=== PATIENT | female | born 1950 | race Caucasian/White ===

== ENCOUNTER 2018-02-04 07:04 | Day surgery (SDC) | payer MEDICARE, OTHER, SELFPAY ==
[2018-02-04 08:20] VITALS: BP 125/75; PULSE 61; RESP 16; TEMP 36.4; O2SAT 99; BMI 28.3
--- NOTE | 2018-02-04 08:38 | PM.PREOP ---
Pre-operative Note Interval Note Pre-op Check: Yes History & Physical Reviewed by Physician, Yes Exam Performed and Yes History & Physical exam performed today by Physician Changes: No
[2018-02-04] MEDS: PROPARACAINE 0.5% OPHTH SOL 2 DROPS EYE-OP (08:39)
[2018-02-04] MEDS: CATARACT EYE COMPOUND (10 DROPS/SYRINGE) 3 DROPS EYE-OP (08:43)
--- NOTE | 2018-02-04 09:22 | SUR.OPER ---
Supine on eye stretcher, head on extension cradle secured with tape. Arms tucked at sides with blanket. Pillow under knees.
[2018-02-04] MEDS: CHONDROIDTIN/SOD HYALURONATE 1.05 ML SYRINGE INTRAOCULA (09:26)
[2018-02-04] MEDS: LIDOCAINE JELLY 2% 5 ML 1 APPLIC TOP (09:27)
[2018-02-04] MEDS: MOXIFLOXACIN OPHTH DROPS 3 ML BOTTLE 2 DROPS INJ (09:27)
[2018-02-04] MEDS: PHENYLEPHRINE/LIDOCAINE 3ML VIAL (OR) EYE-OP (09:28)
[2018-02-04] MEDS: BALANCED SALT IRRIG SOLN NO.2 500 ML, EPINEPHrine 1 MG IRR (09:28)
[2018-02-04] MEDS: TETRACAINE 0.5% OPHTH DROPS 15 ML 2 DROPS EYE-RIGHT (09:31)
[2018-02-04 10:00] VITALS: BP 114/65; PULSE 62; RESP 16; TEMP 36.1; O2SAT 94
--- NOTE | 2018-02-04 14:12 | PM.OP.1 ---
Operative Date/Time/Diagnoses Pre-op diagnosis: Cataract right eye Post-op diagnosis: same Procedure & Clinicians Procedure: Cataract left eye Same procedure as scheduled: Yes Indications: Decreased vision Surgeon: Alex Green Anesthesia Type: MAC +/- and Sedation
--- NOTE | 2018-02-04 20:38 | PM.OP.1 ---
Procedure & Clinicians Procedure: Cataract extraction with intraocular lens implant, right eye Same procedure as scheduled: Yes Indications: Blurry vision Surgeon: Alex Green Anesthesia Type: MAC +/- Operative Notes Procedure in detail: The patient was brought to the operating suite. Tetracaine drops were placed in the right eye. The patient was prepped and draped in the typical sterile manner. A lid speculum was placed in the eye. Lidocaine jelly was placed on the eye. A paracentesis port was created with a side-port blade. 0.1 mL of 1% preservative free lidocaine was injected into the anterior chamber. Viscoelastic was injected into the anterior chamber. A 2.6mm keratome was used to create an clear corneal temporal incision. Cystotome and Utrata forceps were used to create a continuous curvilinear capsulorrhexis. Balanced salt solution was used to hydro dissect the nucleus. Phacoemulsification was used to remove the lens. The capsular bag was inflated with viscoelastic. A Lainez ZCBOO 25.5D lens was inserted. The viscoelastic was removed and the wound hydrated. The wound was found to be leak free and the eye was assessed to be at normal physiologic pressure. 0.1mL Vigamox was injected into the anterior chamber. The lid speculum was removed and the patient left the operating room in excellent condition. Condition: stable Disposition: same day surgery
== END 2018-02-04 10:13 | disposition home or self-care (01) ==
PROVIDERS: PCP Internal Medicine; Visit Provider Ophthalmology
DX: H25.11 Age-related nuclear cataract, right eye (principal); I51.9 Heart disease, unspecified; I10 Essential (primary) hypertension
CPT/HCPCS: J0171; J2250; J3010

== ENCOUNTER 2018-02-17 09:52 | Day surgery (SDC) | payer MEDICARE, OTHER, SELFPAY ==
[2018-02-17 10:42] VITALS: BP 133/71; PULSE 61; RESP 20; TEMP 36.3; O2SAT 99; BMI 28.3
[2018-02-17] MEDS: PROPARACAINE 0.5% OPHTH SOL 2 DROPS EYE-OP (10:58)
[2018-02-17] MEDS: CATARACT EYE COMPOUND (10 DROPS/SYRINGE) 3 DROPS EYE-OP (11:03)
--- NOTE | 2018-02-17 11:05 | SUR.PREOP ---
Dr Green called, verified phenylephrine, cyclopentolate, and Tropicamide and Proparacaine acceptable to give patient.
--- NOTE | 2018-02-17 11:19 | PM.PREOP ---
Pre-operative Note Interval Note Pre-op Check: Yes History & Physical Reviewed by Physician Changes: No
--- NOTE | 2018-02-17 11:58 | SUR.OPER ---
Supine on eye stretcher, head on extension cradle secured with tape. Arms tucked at sides with blanket. Pillow under knees.
[2018-02-17] MEDS: CHONDROIDTIN/SOD HYALURONATE 1.05 ML SYRINGE INTRAOCULA (12:04)
[2018-02-17] MEDS: LIDOCAINE JELLY 2% 5 ML 1 APPLIC TOP (12:05)
[2018-02-17] MEDS: BALANCED SALT IRRIG SOLN NO.2 500 ML, EPINEPHrine 1 MG IRR (12:05)
[2018-02-17] MEDS: MOXIFLOXACIN OPHTH DROPS 3 ML BOTTLE 2 DROPS INJ (12:05)
[2018-02-17] MEDS: LIDOCAINE 1% 10 ML INJ INJ (12:07)
[2018-02-17 12:40] VITALS: BP 94/62; PULSE 66; RESP 20; TEMP 36.4; O2SAT 95
[2018-02-17 12:54] VITALS: BP 102/70; PULSE 65; RESP 14; O2SAT 96
--- NOTE | 2018-02-17 13:44 | PM.OP.1 ---
Operative Date/Time/Diagnoses Date of procedure: 02/17/18 Time of procedure: 13:44 Pre-op diagnosis: cataract Post-op diagnosis: same
--- NOTE | 2018-02-17 13:45 | PM.OP.1 ---
Procedure & Clinicians Procedure: cataract extraction with intraocular lens implant, left eye Same procedure as scheduled: Yes Surgeon: Alex Green Operative Notes Procedure in detail: The patient was brought back into the operating room. Timeout was performed identifying the correct patient, procedure and site. The patient was prepped and draped in the typical sterile fashion. A paracentesis wound was made in the left eye. 1% preservative free lidocaine was injected into the anterior chamber, then viscoelastic was injected into the anterior chamber. The main wound was created with a 2.6 mm Keratome. A curvilinear capsulorhexis was created with a cystotome and utrata forceps. Hydrodissection was performed with balanced salt solution and a straight cannula. The lens was removed with phacoemulsification and the bag was polished. The bag was filled with viscoelastic and a ZCBOO 23.5D lens was inserted into the bag. Viscoelasitc was removed, the wound was hydrated and found to be water tight. The eye was at physiologic pressure. The patient left the operating room in excellent condition. Complications: none Condition: stable Disposition: same day surgery
== END 2018-02-17 12:47 | disposition home or self-care (01) ==
PROVIDERS: Family Provider Internal Medicine; PCP Internal Medicine; Visit Provider Ophthalmology
DX: H25.12 Age-related nuclear cataract, left eye (principal); I10 Essential (primary) hypertension; I51.9 Heart disease, unspecified
CPT/HCPCS: J0171; J2250; J3010

== ENCOUNTER → 2018-08-20 11:00 | Outpatient (CLI) | payer MEDICARE, OTHER, SELFPAY ==
--- NOTE | 2018-08-20 11:04 | DI.RAD.S_ITS ---
PROCEDURE: XR LUMBAR SPINE MIN 4V INDICATIONS: Lumbosacral spondylosis TECHNIQUE: 5 views of the lumbar spine were acquired. COMPARISON: [facility], , SPINE LUMB 2 OR 3VW, 04/10/2012, 11:40. FINDINGS: Bones: 6 nonrib-bearing vertebrae are present. Vertebral bodies are labeled one through 6, in keeping with prior nomenclature. There is minimal retrolisthesis of L1 on L2, L2 on L3, L3 on L4, L4 and L5. Severe disc space narrowing is present L5-L6 and L6 S1. Severe foraminal narrowing is present at L5-L6, moderate to severe L5-S1. No vertebral body compression fractures. No suspicious bony lesions. Soft tissues: Overlying bowel gas pattern is normal. No suspicious soft tissue calcifications. Oblique images: No pars defects. IMPRESSION: Multilevel disc and foraminal narrowing most significant at L5-L6 and L6-S1. Dictated by: Kalpana Kendrick M.D. on 08/20/2018 at 14:56 Approved by: Kalpana Kendrick M.D. on 08/20/2018 at 15:00
--- NOTE | 2018-08-20 11:04 | DI.RAD.S_ITS ---
PROCEDURE: XR FOOT RT MIN 3V INDICATIONS: Bilateral foot pain and sensory peripheral neuropathy TECHNIQUE: 3 views of the foot were acquired. COMPARISON: None. FINDINGS: Bones: No fractures or dislocations. No suspicious bony lesions. No significant arthritic change. Soft tissues: No tibiotalar joint effusion. Achilles tendon appears normal. IMPRESSION: Negative right ankle. Dictated by: Reginaldo Michel M.D. on 08/20/2018 at 13:05 Approved by: Reginaldo Michel M.D. on 08/20/2018 at 13:05
--- NOTE | 2018-08-20 11:04 | DI.RAD.S_ITS ---
PROCEDURE: XR FOOT LT MIN 3V INDICATIONS: Bilateral foot pain and sensory peripheral neuropathy TECHNIQUE: 3 views of the foot were acquired. COMPARISON: None. FINDINGS: Bones: No fractures or dislocations. No suspicious bony lesions. No significant arthritic change. Soft tissues: No tibiotalar joint effusion. Achilles tendon appears normal. IMPRESSION: Unremarkable left foot. Dictated by: Reginaldo Michel M.D. on 08/20/2018 at 13:03 Approved by: Reginaldo Michel M.D. on 08/20/2018 at 13:05
== END ==
PROVIDERS: Family Provider Internal Medicine; PCP Internal Medicine; Visit Provider Physical Medicine & Rehabilitation
DX: M79.671 Pain in right foot (principal); M79.672 Pain in left foot; M47.27 Other spondylosis with radiculopathy, lumbosacral region; M48.061 Spinal stenosis, lumbar region without neurogenic claudication; M48.07 Spinal stenosis, lumbosacral region; G60.8 Other hereditary and idiopathic neuropathies
CPT/HCPCS: 72110; 73630

== ENCOUNTER → 2018-11-09 07:47 | Outpatient (CLI) | payer MEDICARE, OTHER, SELFPAY ==
--- NOTE | 2018-11-09 | DI.US.S_ITS ---
PROCEDURE: US ARTERIAL DUPLEX LE BI INDICATIONS: LOW BACK PAIN PVD of TECHNIQUE: Color and pulse Doppler interrogation was performed of both lower extremity arterial systems, with image documentation. COMPARISON: [facility], , ARTERIAL LOW.EXTREM.BILATERAL, 04/26/2016, 11:08. FINDINGS: Right lower extremity: Common femoral artery: 127 cm/sec, with triphasic flow. Deep femoral artery: 78 cm/sec, with triphasic flow. Proximal superficial femoral artery: 86 cm/sec, with biphasic flow. Mid superficial femoral artery: 79 cm/sec, with biphasic flow. Distal superficial femoral artery: 56 cm/sec, with biphasic flow. Popliteal artery: 48 cm/sec, with biphasic flow. Posterior tibial artery: 60 cm/sec, with biphasic flow. Anterior tibial artery/dorsalis pedis: 58/51 cm/sec, with biphasic flow. French-scale imaging description: No significant stenotic disease. Left lower extremity: Common femoral artery: 141 cm/sec, with triphasic flow. Deep femoral artery: 74 cm/sec, with biphasic flow. Proximal superficial femoral artery: 113 cm/sec, with triphasic flow. Mid superficial femoral artery: 77 cm/sec, with biphasic flow. Distal superficial femoral artery: 76 cm/sec, with biphasic flow. Popliteal artery: 56 cm/sec, with biphasic flow. Posterior tibial artery: 64 cm/sec, with biphasic flow. Anterior tibial artery/dorsalis pedis: 70/68 cm/sec, with biphasic flow. French-scale imaging description: No significant stenotic disease. IMPRESSION: No significant stenosis in either lower extremity from the inguinal ligament to the ankle. Dictated by: Reginaldo Michel M.D. on 11/09/2018 at 17:13 Approved by: Reginaldo Michel M.D. on 11/09/2018 at 17:17
--- NOTE | 2018-11-09 | DI.US.S_ITS ---
PROCEDURE: US MONY LIMITED SINGLE LEVEL INDICATIONS: CLAUDICATION TECHNIQUE: Ankle-brachial indices were obtained bilaterally and recorded. COMPARISONS: FINDINGS: Right ankle brachial index (MONY): 0.95 Left ankle brachial index (MONY): 0.97 IMPRESSION: Bilateral ABIs within normal limits as above Dictated by: Carson Jean Baptiste M.D. on 11/09/2018 at 17:15 Approved by: Carson Jean Baptiste M.D. on 11/09/2018 at 17:16
--- NOTE | 2018-11-09 | DI.MRI.S_ITS ---
PROCEDURE: MR LUMBAR SPINE WO CON INDICATIONS: LOW BACK PAIN PVD TECHNIQUE: Noncontrast sagittal T1 spin echo and T2 fast echo, sagittal STIR, axial T1 and T2 fast spin echo through the lumbar spine. In cases with scoliosis, additional coronal T2 fast spin echo may be performed. COMPARISON: [facility], CR, XR LUMBAR SPINE MIN 4V, 08/20/2018, 11:18. FINDINGS: Image quality: Excellent. Alignment and Curvature: There is overall straightening of the normal lumbar lordosis. No focal AP alignment abnormality is seen. Mild levoconvex scoliotic curvature is noted. Bone Marrow: Marrow is of normal overall signal. No acute vertebral body compression fractures. Scattered foci are seen, which are hyperintense on T1-weighted and T2-weighted imaging, which are most consistent with benign vertebral body hemangiomas. The most prominent of these can be seen within the anterior T11 level. Spinal Cord: Conus medullaris terminates at the L1 level. Visualized cord demonstrates normal signal and size. Paraspinous Soft Tissues: No paravertebral masses. T12-L1: Moderate loss of disc height is seen. Loss of disc signal is seen. Mild to moderate disc bulge is seen. No neural foraminal narrowing is seen. Mild central canal narrowing is seen. L1-L2: The disc height is well-preserved. Loss of disc signal is seen at this level. Mild generalized disc bulge is seen. No significant neural foraminal or central canal narrowing can be seen. L2-L3: The disc height is relatively well-preserved. Loss of disc signal is seen. Mild to moderate disc bulge is seen, which is eccentric to the right. Mild facet joint hypertrophy is seen. No significant neural foraminal or central canal narrowing can be seen. L3-L4: The disc height is well-preserved. Loss of disc signal is seen at this level. Moderate generalized disc bulge is seen. There is a mild central disc protrusion seen. Mild facet joint hypertrophy is seen. No neural foraminal narrowing is seen. Mild central canal narrowing is seen. L4-L5: At least moderate loss of disc height and disc signal can be seen. Reactive marrow endplate changes are seen, which are hyperintense on T1-weighted and T2-weighted imaging and most consistent with fatty metaplasia (Modic type II changes). Moderate disc bulge is seen, which is eccentric to the left. Mild facet joint hypertrophy is seen. There is moderate left-sided and mild to moderate right-sided neural foraminal narrowing seen. Mild central canal narrowing is seen. L5-S1: The disc height is well-preserved. Loss of disc signal is seen at this level. Mild to moderate disc bulge is seen. Kcrm-ly-dracjqqs facet hypertrophy is seen. There is moderate left-sided and minimal right-sided neural foraminal narrowing seen. The central canal is widely patent. IMPRESSION: Lumbar spine degenerative changes are seen, which are most prominent at L4-L5. Dictated by: Bryant Tomas M.D. on 11/09/2018 at 12:56 Approved by: Bryant Tomas M.D. on 11/09/2018 at 13:01
== END ==
PROVIDERS: Family Provider Internal Medicine; PCP Internal Medicine; Visit Provider Internal Medicine
DX: M54.5 Low back pain (principal); I73.9 Peripheral vascular disease, unspecified; M47.816 Spondylosis without myelopathy or radiculopathy, lumbar region
CPT/HCPCS: 72148; 93922; 93925

== ENCOUNTER 2018-12-15 08:05 | Outpatient (CLI) | payer MEDICARE, OTHER, SELFPAY ==
[2018-12-15] VITALS (7 sets, daily range): BP systolic 74–131; BP diastolic 40–59; PULSE 61–83; RESP 16–18; TEMP 36.3; O2SAT 95–100
--- NOTE | 2018-12-15 08:08 | DI.RAD.S_ITS ---
PROCEDURE: PAIN L/S TRANSFORAMINAL INJECT INDICATIONS: SPINAL STENOSIS FINDINGS: Fluoroscopic spot filming was performed to verify placement of spinal needles as labeled on the films. Appropriate location(s) of the needle tip(s) was confirmed by injection of iodinated contrast. IMPRESSION: Fluoroscopy for pain management. Dictated by: Mechelle Alvarado M.D. on 12/15/2018 at 11:54 Approved by: Mechelle Alvarado M.D. on 12/15/2018 at 11:54
[2018-12-15] MEDS: MIDAZOLAM 5 MG/5 ML VIAL IV (09:34)
[2018-12-15] MEDS: BETAMETHASONE 30 MG/5 ML MDV 12 MG INJ (09:39)
[2018-12-15] MEDS: BUPIVACAINE 0.25% (PF) VIAL 2 ML INJ (09:39)
[2018-12-15] MEDS: IOPAMIDOL 15 ML VIAL 3 ML INJ (09:39)
--- NOTE | 2018-12-15 09:53 | PC.NURSE ---
Pt returned via wheelchair awake and able to follow commands, she is a little groggy. Able to move from W/C to chair with 2 person minimal assist. Resumed monitoring from [facility].
--- NOTE | 2018-12-15 09:55 | P.PCN_ITS ---
Procedures Date/Time Date of procedure: 12/15/18 Time of procedure: 09:51 General Procedure description: PREOP DIAGNOSIS 1. FORMAINAL STENOSIS WITH LE SYMPTOMS POST OP DIAGNOSIS 1. FORMAINAL STENOSIS WITH LE SYMPTOMS PROCEDURES 1. FLUOROSCOPICALLY GUIDED CONTRAST CONTROLLED TRANSFORAMINAL EPIDURAL STEROID INJECTION - RIGHT L4/5 TFESI PHYSICIAN: Jayesh Wagner DO INDICATIONS: Usha is referred by Dr. Fuller for treatment of Foraminal Stenosis with Right LE Symptoms FINDINGS Foraminal Nerve Root Compression secondary to disc disease and facet hypertrophy DESCRIPTION OF PROCEDURE: Following review of allergy and review of potential side effects and complications, including, but not necessarily limited to, infection, allergic reaction, local tissue breakdown, stroke, temporary or permanent nerve injury, paralysis, and possible , the patient indicated that the patient understood and agreed to proceed. An informed consent document was signed by the patient, witnessed by a nurse, and placed in the patient's chart. Additionally, other treatment options including medications, modalities, and physical therapy were reviewed with the patient. After review of previous anaesthesic history and IV conscious sedation the patient was deemed safe to proceed with todays procedure with IV conscious sedation as ASA class II designation. Safety time-out was performed to confirm patient ID, procedure to be performed and site of procedure. IV sedation was accomplished with a combination of 3mg of Versed was administered by the RN after DO order, titrated to patient comfort during the course of the procedure while the patient remained responsive to all verbal commands In the prone position following sterile prep and drape of the lumbar region, the Right L4/5 posterior neuroforamen was identified fluoroscopically. The skin was anesthetized via a 25-gauge 1.5-inch needle with 1% lidocaine solution. At this point, a 25-gauge 3.5-inch spinal needle was atraumatically introduced and advanced under fluoroscopic guidance through the posterior Right L4/5 neuroforamen to approximately the anterior aspect of the canal. Depth was confirmed on lateral view. Following negative aspiration, injection of approximately 1.5 cc of Isovue 200 under live fluoroscopy in the AP view confirmed excellent flow along the nerve root, into the epidural space without vascular or intrathecal uptake observed Radiological data, including multiple fluoroscopic views of the lumbosacral spine, reveal a spinal needle at the right L4/5 posterior neuroforamen. Subsequent views show flow of contrast material flowing superiorly and inferiorly along the nerve root confirming epidural flow. Subsequently, a test dose of 1.5 cc of 1% lidocaine solution was administered and patient was observed for two minutes for signs or symptoms of complications, including abdominal pain, shortness of breath, bilateral upper or lower extremity weakness, nausea and vomiting, prior to steroid injection. At this point, a total of 2cc or 20mg of dexamethasone was injected without incident. The procedure tolerated the procedure well without signs or symptoms of complications prior to transfer to the recovery area continued monitoring without incident.The patient was then transferred to the recovery area where they were observed for an appropriate time after the injection. The patient reported a VAS score of 7 prior to the procedure and a post- procedure VAS of 0. Total Fluoroscopy Time: 20.9 seconds Total Conscious Sedation Time: 24min POST OP INSTRUCTIONS The patient was provided a Pain Log to continue to record their response to the target-specific procedure prior to follow-up visit with their referring physician. Additionally, specific post-injection care instructions and a contact number to our office were provided if concerns arise regarding possible complications associated with the procedure are suspected. Jayesh Wagner DO Complications: none
--- NOTE | 2018-12-15 10:46 | PC.NURSE ---
Pt still a little groggy but awake enough to try standing up. Pt unsteady on her feet. Will wait a little longer and recheck her in 20 minutes.
--- NOTE | 2018-12-15 11:20 | PC.NURSE ---
Pt still has a little weakness in her right leg, unable to stand on right foot with left elevated. driving her home to [place] approximately 40 minutes away. pt stable to be discharged.
== END 2018-12-15 11:22 ==
LOC: RAD 08:08
PROVIDERS: PCP Internal Medicine; Visit Provider Physical Medicine & Rehabilitation
DX: M48.061 Spinal stenosis, lumbar region without neurogenic claudication (principal); M51.16 Intervertebral disc disorders with radiculopathy, lumbar region
CPT/HCPCS: 64483; 99152; J0702; J2250

== ENCOUNTER 2019-01-12 06:42 | Outpatient (CLI) | payer MEDICARE, OTHER, SELFPAY ==
[2019-01-12] VITALS (8 sets, daily range): BP systolic 89–118; BP diastolic 43–60; PULSE 57–64; RESP 16; TEMP 36.1; O2SAT 93–100
--- NOTE | 2019-01-12 06:44 | DI.RAD.S_ITS ---
PROCEDURE: PAIN L/S TRANSFORAMINAL INJECT INDICATIONS: SPINAL STENOSIS FINDINGS: Fluoroscopic spot filming was performed to verify placement of spinal needles at the L4-L5 level(s), as labeled on the films. Appropriate location(s) of the needle tip(s) was confirmed by injection of iodinated contrast. IMPRESSION: Fluoroscopy support for pain management. Dictated by: Mechelle Alvarado M.D. on 01/12/2019 at 10:35 Approved by: Mechelle Alvarado M.D. on 01/12/2019 at 10:35
[2019-01-12] MEDS: fentaNYL 100 MCG/2 ML INJ 50 MCG IV (07:27)
[2019-01-12] MEDS: MIDAZOLAM 5 MG/5 ML VIAL IV (07:27)
[2019-01-12] MEDS: DEXAMETHASONE 10 MG/ML VIAL 20 MG INJ (07:31)
[2019-01-12] MEDS: BETAMETHASONE 30 MG/5 ML MDV 6 MG INJ (07:31)
[2019-01-12] MEDS: IOPAMIDOL 15 ML VIAL 3 ML INJ (07:31)
--- NOTE | 2019-01-12 07:35 | PC.NURSE ---
ASSISTING PT OFF TABLE AND TRANSPORTING TO POST PROC AREA IN STABLE CONDITION
--- NOTE | 2019-01-12 07:42 | P.PCN_ITS ---
Procedures Date/Time Date of procedure: 01/12/19 Time of procedure: 07:41 General Procedure description: PREOP DIAGNOSIS 1. FORMAINAL STENOSIS WITH LE SYMPTOMS POST OP DIAGNOSIS 1. FORMAINAL STENOSIS WITH LE SYMPTOMS PROCEDURES 1. FLUOROSCOPICALLY GUIDED CONTRAST CONTROLLED TRANSFORAMINAL EPIDURAL STEROID INJECTION - LEFT L4/5 PHYSICIAN: Jayesh Wagner DO INDICATIONS: Usha is referred by Dr. Fuller for treatment of Foraminal Stenosis with Left LE Symptoms FINDINGS Foraminal Nerve Root Compression secondary to disc disease and facet hypertrophy DESCRIPTION OF PROCEDURE: Following review of allergy and review of potential side effects and complications, including, but not necessarily limited to, infection, allergic reaction, local tissue breakdown, stroke, temporary or permanent nerve injury, paralysis, and possible , the patient indicated that the patient understood and agreed to proceed. An informed consent document was signed by the patient, witnessed by a nurse, and placed in the patient's chart. Additionally, other treatment options including medications, modalities, and physical therapy were reviewed with the patient. After review of previous anaesthesic history and IV conscious sedation the raf ent was deemed safe to proceed with todays procedure with IV conscious sedation as ASA class II designation. Safety time-out was performed to confirm patient ID, procedure to be performed and site of procedure. IV sedation was accomplished with a combination of 2mg of Versed and 50mcg of Fentanyl administered by the RN after DO order, titrated to patient comfort during the course of the procedure while the patient remained responsive to all verbal commands In the prone position following sterile prep and drape of the lumbar region, the left L4/5 posterior neuroforamen was identified fluoroscopically. The skin was anesthetized via a 25-gauge 1.5-inch needle with 1% lidocaine solution. At this point, a 25-gauge 3.5-inch spinal needle was atraumatically introduced and advanced under fluoroscopic guidance through the posterior left L4/5 neuroforamen to approximately the anterior aspect of the canal. Depth was confirmed on lateral view. Following negative aspiration, injection of ingrid roximately 1.5 cc of Isovue 200 under live fluoroscopy in the AP view confirmed excellent flow along the nerve root, into the epidural space without vascular or intrathecal uptake observed Radiological data, including multiple fluoroscopic views of the lumbosacral spine, reveal a spinal needle at the left L4/5 posterior neuroforamen. Subsequent views show flow of contrast material flowing superiorly and inferiorly along the nerve root confirming epidural flow. Subsequently, a test dose of 1.5 cc of 1% lidocaine solution was administered and patient was observed for two minutes for signs or symptoms of complications, including abdominal pain, shortness of breath, bilateral upper or lower extremity weakness, nausea and vomiting, prior to steroid injection. At this point, a total of 3cc or 20mg of dexamethasone and 6mg of betamethasone was injected without incident. The procedure tolerated the procedure well without signs or symptoms of complications prior to transfer to the recovery area continued monitoring without incident. The patient was then transferred to the recovery area where they were observed for an appropriate time after the injection. The patient reported a VAS score of 7 prior to the procedure and a post- procedure VAS of 0. Total Fluoroscopy Time: 20.9 seconds Total Conscious Sedation Time: 24min POST OP INSTRUCTIONS The patient was provided a Pain Log to continue to record their response to the target-specific procedure prior to follow-up visit with their referring physician. Additionally, specific post-injection care instructions and a contact number to our office were provided if concerns arise regarding possible complications associated with the procedure are suspected. Jayesh Wagner, Complications: none
--- NOTE | 2019-01-12 07:45 | PC.NURSE ---
Pt returned via wheelchair with a numb left leg, able to be transferred to chair by Mark[place]. Resumed care from [facility].
[2019-01-12] MEDS: BUPIVACAINE 0.5% (PF) VIAL 2 ML INJ (07:48)
--- NOTE | 2019-01-12 08:40 | PC.NURSE ---
Pt still has a numb left leg, she is able to lift it off the chair. It's really heavy feeling Will continue to hold pt here until she can stand on that leg.
--- NOTE | 2019-01-12 08:53 | PC.NURSE ---
Attempted to put pressure on her legs, she reports her right leg is doing well but her left leg is still numb. Will continue to wait until she is able to stand on that leg.
== END 2019-01-12 09:18 ==
LOC: RAD 06:44
PROVIDERS: PCP Internal Medicine; Visit Provider Physical Medicine & Rehabilitation
DX: M48.061 Spinal stenosis, lumbar region without neurogenic claudication (principal)
CPT/HCPCS: 64483; 99152; J0702; J1100; J2250; J3010

== ENCOUNTER 2019-05-11 06:50 | Outpatient (CLI) | payer MEDICARE, OTHER, SELFPAY ==
[2019-05-11] VITALS (14 sets, daily range): BP systolic 79–123; BP diastolic 42–71; PULSE 50–84; RESP 16–18; TEMP 36.4; O2SAT 92–100
--- NOTE | 2019-05-11 06:52 | DI.RAD.S_ITS ---
PROCEDURE: PAIN C/T TRANFORAMINAL INJECT INDICATIONS: SPINAL STENOSIS FINDINGS: Fluoroscopic spot filming was performed to verify placement of spinal needles at the left T12-L1 neural foramen level(s), as labeled on the films. Appropriate location(s) of the needle tip(s) was confirmed by injection of iodinated contrast. IMPRESSION: Successful left-sided T12-L1 needle tip localization for perineural epidural steroid injection. Dictated by: Jose Trevizo M.D. on 05/11/2019 at 10:50 Approved by: Jose Trevizo M.D. on 05/11/2019 at 10:51
[2019-05-11] MEDS: MIDAZOLAM 5 MG/5 ML VIAL IV (08:04)
[2019-05-11] MEDS: fentaNYL 100 MCG/2 ML INJ 50 MCG IV (08:04)
--- NOTE | 2019-05-11 08:11 | PC.NURSE ---
DR HERNANDEZ NOTIFIED OF LOW BP, NO NEW ORDERS.
[2019-05-11] MEDS: IOPAMIDOL 15 ML VIAL 3 ML INJ (08:15)
[2019-05-11] MEDS: BETAMETHASONE 30 MG/5 ML MDV 12 MG INJ (08:15)
[2019-05-11] MEDS: DEXAMETHASONE 10 MG/ML VIAL 20 MG INJ (08:15)
[2019-05-11] MEDS: BUPIVACAINE 0.25% (PF) VIAL 2 ML INJ (08:15)
--- NOTE | 2019-05-11 08:16 | PC.NURSE ---
ASSISTING PT OFF TABLE AND TRANSPORTING TO POST PROC AREA IN STABLE CONDITION.
--- NOTE | 2019-05-11 08:22 | PM.PROC.1 ---
Procedures Date/Time Date of procedure: 05/11/19 Time of procedure: 08:22 General Procedure description: Operative Note PREOP DIAGNOSIS 1. FORAMINAL STENOSIS WITH LE SYMPTOMS, POST OP DIAGNOSIS 1. FORAMINAL STENOSIS WITH LE SYMPTOMS, PROCEDURES 1. FLUOROSCOPICALLY GUIDED CONTRAST CONTROLLED TRANSFORAMINAL EPIDURAL STEROID INJECTION - LEFT T12/L1 TFESI SURGEON: Jayesh Wagner, DO INDICATIONS Usha is referred for treatment of Foraminal Stenosis with left LE Symptoms FINDINGS Foraminal Nerve Root Compression secondary to disc disease and facet hypertrophy DESCRIPTION OF PROCEDURE Following review of allergy and review of potential side effects and complications, including, but not necessarily limited to, infection, allergic reaction, local tissue breakdown, stroke, temporary or permanent nerve injury, paralysis, and possible , the patient indicated that the patient understood and agreed to proceed. An informed consent document was signed by the patient, witnessed by a nurse, and placed in the patient's chart. Additionally, other treatment options including medications, modalities, and physical therapy were reviewed with the patient. After review of previous anaesthesic history and IV conscious sedation the patient was deemed safe to proceed with todays procedure with IV conscious sedation as ASA class II designation. Safety time-out was performed to confirm patient ID, procedure to be performed and site of procedure. IV sedation was accomplished with a combination of 2mg of Versed and 50mcg of Fentanyl was administered by the RN after DO order, titrated to patient comfort during the course of the procedure while the patient remained responsive to all verbal commands In the prone position following sterile prep and drape of the lumbar region, the left T12/L1 posterior neuroforamen was identified fluoroscopically. The skin was anesthetized via a 25-gauge 1.5-inch needle with 1% lidocaine solution. At this point, a 25-gauge 3.5-inch spinal needle was atraumatically introduced and advanced under fluoroscopic guidance through the posterior left T12/L1 neuroforamen to approximately the anterior aspect of the canal. Depth was confirmed on lateral view. Following negative aspiration, injection of approximately 1.5 cc of Isovue 200 under live fluoroscopy in the AP view confirmed excellent flow along the nerve root, into the epidural space without vascular or intrathecal uptake observed Radiological data, including multiple fluoroscopic views of the lumbosacral spine, reveal a spinal needle at the left T12/L1 posterior neuroforamen. Subsequent views show flow of contrast material flowing superiorly and inferiorly along the nerve root confirming epidural flow. Subsequently, a test dose of 1.5 cc of 1% lidocaine solution was administered and patient was observed for two minutes for signs or symptoms of complications, including abdominal pain, shortness of breath, bilateral upper or lower extremity weakness, nausea and vomiting, prior to steroid injection. At this point, a total of 4cc or 20mg of dexamethasone and 12mg of betamethasone was injected without incident. The patient tolerated the procedure well without signs or symptoms of complications prior to transfer to the recovery area continued monitoring without incident. The patient was then transferred to the recovery area where they were observed for an appropriate time after the injection. The patient reported a VAS score of 7 prior to the procedure and a post-procedure VAS of 0. Total Fluoroscopy Time: 24.2 seconds Total Conscious Sedation Time: 24min POST OP INSTRUCTIONS The patient was provided a Pain Log to continue to record their response to the target-specific procedure prior to follow-up visit with their referring physician. Additionally, specific post-injection care instructions and a contact number to our office were provided if concerns arise regarding possible complications associated with the procedure are suspected. Jayesh Wagner DO Complications: none Complications: none
--- NOTE | 2019-05-11 13:15 | PC.NURSE ---
Late entry Nurses post procedure note: Patient arrived for post monitoring via wheelchair. Sedated but easily arousable. VSS labile initially. SBP dropped to 79/51 HR 58. Asymptomatic. Continued monitoring BP stabilized prior to discharge. Attempted to stand at at 0904. Lower extremities numb. Allowed to rest and stood without difficulty at 0945. Transfered to w/c with 1 stand by assist. Discharge instructions reviewed with patient and spouse with good understanding. Discharged to home, w/c to car at 0950. Pain level 0/10
== END 2019-05-11 09:50 | disposition home or self-care (01) ==
PROVIDERS: Visit Provider Physical Medicine & Rehabilitation
DX: M51.15 Intervertebral disc disorders with radiculopathy, thoracolumbar region (principal); M48.05 Spinal stenosis, thoracolumbar region
CPT/HCPCS: 64479; 99152; J0702; J1100; J2250; J3010

== ENCOUNTER → 2019-05-31 08:27 | Outpatient (CLI) | payer MEDICARE, OTHER, SELFPAY ==
--- NOTE | 2019-05-31 08:29 | DI.RAD.S_ITS ---
PROCEDURE: XR HIP W PEL IF DONE LT MIN 4V INDICATIONS: Bilateral hip and pelvis pain TECHNIQUE: AP pelvis with lateral view(s) of the left and right hip(s). COMPARISON: None. FINDINGS: Bones: No fractures or dislocations. Pelvic ring appears intact. No suspicious bony lesions. Symmetric mild bilateral hip degeneration. Scattered degenerative subchondral sclerosis and spurring. Lower lumbar spondylosis and facet arthropathy. Degenerative sclerosis and spurring at both sacroiliac joints as well as pubic symphysis. Minimal bilateral hip joint space narrowing Soft tissues: The visualized bowel gas pattern is normal. No suspicious soft tissue calcifications. IMPRESSION: Mild bilateral hip degeneration Lower lumbar spondylosis Dictated by: Carson Jean Baptiste M.D. on 05/31/2019 at 9:35 Approved by: Carson Jean Baptiste M.D. on 05/31/2019 at 9:37
== END ==
PROVIDERS: Visit Provider Physical Medicine & Rehabilitation
DX: M25.551 Pain in right hip (principal); M25.552 Pain in left hip; M16.0 Bilateral primary osteoarthritis of hip; R10.2 Pelvic and perineal pain; M47.816 Spondylosis without myelopathy or radiculopathy, lumbar region; M47.817 Spondylosis without myelopathy or radiculopathy, lumbosacral region; M48.061 Spinal stenosis, lumbar region without neurogenic claudication; M99.83 Other biomechanical lesions of lumbar region; M62.89 Other specified disorders of muscle; G89.29 Other chronic pain; G62.9 Polyneuropathy, unspecified; S22.080A Wedge compression fracture of T11-T12 vertebra, initial encounter for closed fracture; Z95.5 Presence of coronary angioplasty implant and graft; Z79.01 Long term (current) use of anticoagulants
CPT/HCPCS: 73522; 99214

== ENCOUNTER → 2019-07-01 11:24 | Outpatient (CLI) | payer MEDICARE, OTHER, SELFPAY | PROVIDERS: PCP Internal Medicine; Visit Provider Physical Medicine & Rehabilitation | DX: M62.89 Other specified disorders of muscle (principal); M48.061 Spinal stenosis, lumbar region without neurogenic claudication | CPT/HCPCS: 95886; 95910 ==

== ENCOUNTER → 2019-09-06 08:40 | Outpatient (CLI) | payer MEDICARE, OTHER, SELFPAY ==
--- NOTE | 2019-09-06 | DI.NM.S_ITS ---
PROCEDURE: NM BONE SCAN WHOLE BODY RADIOPHARMACEUTICAL: 20.3 mCi Tc-99m MDP IV. INDICATIONS: Wedge compression fracture of T11-T12 vertebra TECHNIQUE: Delayed whole-body scintigrams were obtained approximately 3-4 hours after intravenous injection of radiotracer. Anterior and posterior views were acquired from vertex to feet. COMPARISON: [facility], XA, PAIN C/T TRANFORAMINAL INJECT, 05/11/2019, 8:07. [facility], XA, PAIN L/S TRANSFORAMINAL INJECT, 01/12/2019, 7:31. [facility], MR, MR LUMBAR SPINE WO CON, 11/09/2018, 8:52. FINDINGS: There is diffuse, heterogeneously increased uptake in the skull. No lesions are identified in skull, sternum, clavicles, scapulae, ribs, bony pelvis, and visualized shafts of the long bones. No abnormal uptake in the area of T11 or T12. There is low level increased uptake in cervical, thoracic and lumbar spine with distribution indistinguishable from degenerative disc and facet disease; early metastasis to spine could be obscured by degenerative changes. There are foci of increased periarticular activity involving shoulders, sternoclavicular joints, wrists, hands, hips, SI joints, knees, ankles and feet, compatible with degenerative/arthritic changes. IMPRESSION: 1. Diffuse heterogeneously increased activity in skull. Uncertain clinical significance. Recommend radiographic and clinical correlation. 2. No abnormal uptake in the area of T11 or T12. Dictated by: Mechelle Alvarado M.D. on 09/06/2019 at 17:16 Approved by: Mechelle Alvarado M.D. on 09/06/2019 at 18:37
== END ==
PROVIDERS: PCP Internal Medicine; Referring Provider Physical Medicine & Rehabilitation; Visit Provider Physical Medicine & Rehabilitation
DX: S22.080A Wedge compression fracture of T11-T12 vertebra, initial encounter for closed fracture (principal); M62.89 Other specified disorders of muscle; M79.671 Pain in right foot; M79.672 Pain in left foot
CPT/HCPCS: 78306; A9503

== ENCOUNTER → 2019-12-27 08:33 | Outpatient (CLI) | payer MEDICARE, OTHER, SELFPAY ==
[2019-12-28 08:34] LABS: COVID19 Sendout NOT DETECTED (Not Detect)
== END ==
PROVIDERS: PCP Internal Medicine; Visit Provider Physician Assistant
DX: Z01.812 Encounter for preprocedural laboratory examination (principal)
CPT/HCPCS: 87635

== ENCOUNTER 2019-12-30 08:17 | Outpatient (CLI) | payer MEDICARE, OTHER, SELFPAY ==
[2019-12-30] VITALS (9 sets, daily range): BP systolic 83–150; BP diastolic 43–74; PULSE 53–75; RESP 14–16; TEMP 36.2; O2SAT 89–100
--- NOTE | 2019-12-30 08:18 | DI.RAD.S_ITS ---
PROCEDURE: PAIN L/S TRANSFORAMINAL INJECT INDICATIONS: SPONDYLOSIS Fluoroscopic spot filming was performed to verify placement of a spinal needle at the L4-L5 level, as labeled on the films. Appropriate location of the needle tip was confirmed by injection of iodinated contrast. IMPRESSION: Intraprocedural examination within normal limits. Dictated by: Bryant Tomas M.D. on 12/30/2019 at 9:26 Approved by: Bryant Tomas M.D. on 12/30/2019 at 9:26
[2019-12-30] MEDS: fentaNYL 100 MCG/2 ML INJ 50 MCG IV (09:28)
[2019-12-30] MEDS: MIDAZOLAM 5 MG/5 ML VIAL IV (09:28)
[2019-12-30] MEDS: IOPAMIDOL 15 ML VIAL 3 ML INJ (09:33)
[2019-12-30] MEDS: BUPIVACAINE 0.25% (PF) VIAL 2 ML INJ (09:33)
[2019-12-30] MEDS: DEXAMETHASONE 10 MG/ML VIAL 20 MG INJ (09:33)
[2019-12-30] MEDS: BETAMETHASONE 30 MG/5 ML MDV 6 MG INJ (09:33)
--- NOTE | 2019-12-30 09:41 | P.PCN_ITS ---
Date/Time/Diagnoses Date of procedure: 12/30/19 Time of procedure: 09:41 Pre-procedure diagnosis: 1. FORAMINAL STENOSIS WITH LE SYMPTOMS Post-procedure diagnosis: same Procedure Notes Procedure: 1. FLUOROSCOPICALLY GUIDED CONTRAST CONTROLLED TRANSFORAMINAL EPIDURAL STEROID INJECTION - LEFT L4/5 Indications: Usha is referred by Dr. Chandra for treatment of Foraminal Stenosis with Left LE Symptoms Physician: Jayesh Wagner Total Fluoroscopy time (seconds): 12 Total sedation minutes: 24 Complications: none Procedure in detail & Post-procedure care: FINDINGS Foraminal Nerve Root Compression secondary to disc disease and facet hypertrophy DESCRIPTION OF PROCEDURE Following review of allergy and review of potential side effects and complications, including, but not necessarily limited to, infection, allergic reaction, local tissue breakdown, stroke, temporary or permanent nerve injury, paralysis, and possible , the patient indicated that the patient understood and agreed to proceed. An informed consent document was signed by the patient, witnessed by a nurse, and placed in the patient's chart. Additionally, other treatment options including medications, modalities, and physical therapy were reviewed with the patient. After review of previous anaesthesic history and IV conscious sedation the patient was deemed safe to proceed with today?s procedure with IV conscious sedation as ASA class II designation. Safety time-out was performed to confirm patient ID, procedure to be performed and site of procedure. IV sedation was accomplished with a combination of 3mg of Versed and 50mcg of Fentanyl administered by the RN after DO order, titrated to patient comfort during the course of the procedure while the patient remained responsive to all verbal commands In the prone position following sterile prep and drape of the lumbar region, the left L4/5 posterior neuroforamen was identified fluoroscopically. The skin was anesthetized via a 25-gauge 1.5-inch needle with 1% lidocaine solution. At this point, a 25-gauge 3.5-inch spinal needle was atraumatically introduced and advanced under fluoroscopic guidance through the posterior left L4/5 neuroforamen to approximately the anterior aspect of the canal. Depth was confirmed on lateral view. Following negative aspiration, injection of approximately 1.5 cc of Isovue 200 under live fluoroscopy in the AP view confirmed excellent flow along the nerve root, into the epidural space without vascular or intrathecal uptake observed Radiological data, including multiple fluoroscopic views of the lumbosacral spine, reveal a spinal needle at the left L4/5 posterior neuroforamen. Subsequent views show flow of contrast material flowing superiorly and inferiorly along the nerve root confirming epidural flow. Subsequently, a test dose of 1.5 cc of 1% lidocaine solution was administered and patient was observed for two minutes for signs or symptoms of complications, including abdominal pain, shortness of breath, bilateral upper or lower extremity weakness, nausea and vomiting, prior to steroid injection. At this point, a total of 3cc or 20mg of dexamethasone and 6mg of betamethasone was injected without incident. The procedure tolerated the procedure well without signs or symptoms of complications prior to transfer to the recovery area continued monitoring without incident. The patient was then transferred to the recovery area where they were observed for an appropriate time after the injection. The patient reported a VAS score of 7 prior to the procedure and a post- procedure VAS of 0. POST OP INSTRUCTIONS The patient was provided a Pain Log to continue to record their response to the target-specific procedure prior to follow-up visit with their referring physician. Additionally, specific post-injection care instructions and a contact number to our office were provided if concerns arise regarding possible complications associated with the procedure are suspected.
--- NOTE | 2019-12-30 16:19 | PC.NURSE ---
Pt tolerated procedure well. Versed and Fentanyl given my RN Lawrence, all other meds administered by Dr. Wagner. VSS upon transfer to ROHINI Melendez in post procedure room.
== END 2019-12-30 10:26 | disposition home or self-care (01) ==
LOC: RAD 08:18
PROVIDERS: PCP Internal Medicine; Referring Provider Physical Medicine & Rehabilitation; Visit Provider Physical Medicine & Rehabilitation
DX: M48.061 Spinal stenosis, lumbar region without neurogenic claudication (principal); M51.16 Intervertebral disc disorders with radiculopathy, lumbar region
CPT/HCPCS: 64483; 99152; J0702; J1100; J2250; J3010

== ENCOUNTER → 2020-03-04 07:54 | Outpatient (CLI) | payer MEDICARE, OTHER, SELFPAY ==
--- NOTE | 2020-03-04 08:22 | DI.MG.S_ITS ---
Patient Name: EVA LOPEZ date: 1950 Sex: F Attending Physician: Corazon Indications: Date: 03/04/2020 08:34 At the request of: MCKENZIE ANDERSON Procedure: MM screening mammo BI BILATERAL DIGITAL SCREENING MAMMOGRAM 3D/2D WITH CAD: 03/04/2020 CLINICAL: Routine screening. Comparison is made to exams dated: 02/05/2019 mammogram, 02/20/2018 mammogram, and 01/02/2017 mammogram - [facility]. There are scattered fibroglandular elements in both breasts. Current study was also evaluated with a Computer Aided Detection (CAD) system. There are benign calcifications in both breasts. No significant masses, calcifications, or other findings are seen in either breast. There has been no significant interval change. IMPRESSION: BENIGN There is no mammographic evidence of malignancy. A 1 year screening mammogram is recommended. This exam was interpreted at Station ID: [id number]. NOTE: For mammograms, a report in lay terms will be sent to the patient. Approximately 15% of breast malignancies will not be visualized mammographically. In the management of a palpable breast mass, a negative mammogram must not discourage biopsy of a clinically suspicious lesion. Electronically Signed By: Arturo mayorga/christine:03/06/2020 08:41:43 letter sent: Normal Exam ACR BI-RADS Category 2: Benign Finding(s) 3342F
== END ==
PROVIDERS: PCP Internal Medicine; Referring Provider Internal Medicine; Visit Provider Internal Medicine
DX: Z12.31 Encounter for screening mammogram for malignant neoplasm of breast (principal)
CPT/HCPCS: 77063; 77067

== ENCOUNTER → 2020-04-13 09:51 | Outpatient (CLI) | payer MEDICARE, OTHER, SELFPAY ==
--- NOTE | 2020-04-13 09:53 | DI.RAD.S_ITS ---
PROCEDURE: XR LUMBAR SPINE MIN 4V INDICATIONS: recent imaging abnormality TECHNIQUE: 4 total views of the lumbar spine were acquired, including bilateral oblique views. COMPARISON: [facility], MR, MR LUMBAR SPINE WO CON, 11/09/2018, 8:52. [facility], CR, XR HIP W PEL IF DONE POLO 3TO4V, 05/31/2019, 8:26. [facility], CR, XR SHOULDER RT MIN 2V, 04/13/2020, 9:42. [facility], CR, XR LUMBAR SPINE MIN 4V, 08/20/2018, 11:18. FINDINGS: Bones: This patient has transitional lumbar anatomy. For the purposes of this examination, the level with the last well-developed pair of ribs is considered to be T12. By this numbering scheme, there are 6 lumbar-type vertebral bodies, which are labeled as L1 through L6. This numbering scheme is chosen to remain consistent with the prior lumbar plain film report dated 08/20/2018. There is minimal S-shaped scoliotic curvature No vertebral body compression fractures. No suspicious bony lesions. There is moderate disc space narrowing seen at the L5-L6 level. Mild to moderate disc space narrowing is seen at L1-2. There is mild disc space narrowing at L6-S1. The disc heights otherwise appear well-preserved. Endplate irregularity and sclerosis are seen, which are most prominent at L5-L6. Lower lumbar spine facet arthropathy is seen. Soft tissues: Overlying bowel gas pattern is normal. No suspicious soft tissue calcifications. Atherosclerotic calcification is noted. Oblique images: No pars defects. IMPRESSION: Lumbar spine degenerative changes are seen, which are worst at the L5-L6 level. Transitional lumbar anatomy, with 6 lumbar type vertebral bodies. Minimal S-shaped scoliotic curvature. Dictated by: Bryant Tomas M.D. on 04/13/2020 at 9:58 Approved by: Bryant Tomas M.D. on 04/13/2020 at 10:03
--- NOTE | 2020-04-13 09:53 | DI.RAD.S_ITS ---
PROCEDURE: XR SHOULDER RT MIN 2V INDICATIONS: right shoulder pain TECHNIQUE: 3 views of the shoulder were acquired. COMPARISON: [facility], , CHEST 1 VIEW, 07/07/2016, 23:21. [facility], , XR LUMBAR SPINE MIN 4V, 04/13/2020, 9:42. FINDINGS: Bones: No fractures or dislocations. No suspicious bony lesions. Visualized ribs appear intact. Degenerative changes are seen, including mild subacromial spurring. Soft tissues: No suspicious soft tissue calcifications. The visualized lung demonstrates an unremarkable appearance. IMPRESSION: Unremarkable right shoulder plain films for age. If it would be helpful for clinical management decision making, please consider a dedicated shoulder MRI for further evaluation (assuming that there is no contraindication). If there is strong clinical concern for a labral abnormality, this should be performed according to the arthrogram protocol. Dictated by: Bryant Tomas M.D. on 04/13/2020 at 9:57 Approved by: Bryant Tomas M.D. on 04/13/2020 at 9:58
== END ==
PROVIDERS: PCP Internal Medicine; Referring Provider Physical Medicine & Rehabilitation; Visit Provider Physical Medicine & Rehabilitation
DX: G62.9 Polyneuropathy, unspecified (principal); M47.816 Spondylosis without myelopathy or radiculopathy, lumbar region; M47.817 Spondylosis without myelopathy or radiculopathy, lumbosacral region; M48.061 Spinal stenosis, lumbar region without neurogenic claudication; M99.83 Other biomechanical lesions of lumbar region; M75.41 Impingement syndrome of right shoulder
CPT/HCPCS: 72110; 73030

== ENCOUNTER → 2020-07-10 08:45 | Outpatient (CLI) | payer MEDICARE, OTHER, SELFPAY | PROVIDERS: PCP Internal Medicine; Referring Provider Internal Medicine; Visit Provider Physical Medicine & Rehabilitation | DX: M75.41 Impingement syndrome of right shoulder (principal); Z53.9 Procedure and treatment not carried out, unspecified reason ==

== ENCOUNTER → 2020-08-07 08:41 | Outpatient (CLI) | payer MEDICARE, OTHER, SELFPAY ==
--- NOTE | 2020-08-07 | DI.ECHO.S_ITS ---
[facility] +---------+ : : [address] : : : : [id number] : : : : Phone: [phone]+ Echocardiogram Report + + :Name: EVA LOPEZ Study Date: 08/07/2020 Height: 62 in : :[facility] ReadingLocation: Weight: 157 lb : : Gender: Female BSA: 1.7 m2 : :: 1950 Age: 70 yrs BP: 139/74 mmHg: :Reason For Study: ATHEROSCLEROTIC HEART DISEASE : :Ordering Physician: CARMEN, : :MARIA EUGENIA Performed By: Luzma Whitley : :Referring: MARIA EUGENIA BARILLAS : + + Interpretation Summary There is mild concentric left ventricular hypertrophy. Left ventricular systolic function appears normal without focal wall motion abnormalities. The ejection fraction is estimated to be 60-65%. Diastolic parameters suggest a relaxation abnormality of the left ventricle, consistent with probable normal filling pressures. The right ventricle is normal in size and function. The right ventricular systolic pressure is estimated to be at least 27 mmHg based on an estimated right atrial pressure of 3 mm Hg. The left atrium is borderline dilated. Right atrial size is normal. There is mild mitral regurgitation. There is mild to moderate aortic regurgitation. There is no other significant valvular heart disease. The ascending aorta is mildly enlarged. Procedure: A two-dimensional transthoracic echocardiogram with color flow and Doppler was performed. The study quality was technically adequate. There is no prior echocardiogram noted for this patient. The patient had occasional PVCs during the exam. The patient was in sinus rhythm with heart rates between 51-72 bpm during the exam. Left Ventricle: The left ventricle is normal in size. There is mild concentric left ventricular hypertrophy. Left ventricular systolic function appears normal without focal wall motion abnormalities. The ejection fraction is estimated to be 60-65%. Diastolic parameters suggest a relaxation abnormality of the left ventricle, consistent with probable normal filling pressures. Right Ventricle: The right ventricle is normal in size and function. Atria: The left atrium is borderline dilated. Right atrial size is normal. There is no Doppler evidence for an interatrial shunt. Mitral Valve: The mitral valve is normal in structure and function. There is mild mitral regurgitation. Aortic Valve: The aortic valve is trileaflet. The aortic valve opens well. There is no aortic valve stenosis. There is mild to moderate aortic regurgitation. Tricuspid Valve: The tricuspid valve is normal in structure and function. The right ventricular systolic pressure is estimated to be at least 27 mmHg based on an estimated right atrial pressure of 3 mm Hg. There is mild tricuspid regurgitation. Pulmonic Valve: The pulmonic valve leaflets are thin and pliable; valve motion is normal. There is trace pulmonic regurgitation. There is no other significant valvular heart disease. Great Vessels: The aortic root is normal size. The ascending aorta is mildly enlarged. The IVC is of normal diameter and collapses greater than 50% with a sniff. This suggests a low right atrial pressure of 3 mm Hg. Pericardium/ Pleura There is no pericardial effusion. There is an anterior echo-free space consistent with a fat pad. There is no pleural effusion. MMode/2D Measurements & Calculations LVIDd: 3.9 cm LVOT diam: 2.0 cm LVIDs: 2.8 cm Ao root diam: 3.4 cm FS: 28.9 % asc Aorta Diam: 3.5 cm EPSS: 0.80 cm Ao Arch Diam (Prox Trans): 2.9 cm IVSd: 1.3 cm LVPWd: 1.1 cm LV mccracken. diameter/BSA (cm/m^2): 2.3 LV sys. diameter/BSA (cm/m^2): 1.6 LA A2 area: 19.8 cm2 RA long axis: 4.6 cm LA A4 area: 18.0 cm2 RA area: 12.8 cm2 LA length (vol): 5.3 cm RA vol: 30.4 ml LA vol: 57.1 ml RA : 17.6 ml/m2 LA vol index: 33.1 ml/m2 IVC diam: 0.62 cm RVD1 (basal): 2.9 cm TAPSE: 2.1 cm Doppler Measurements & Calculations Ao V2 max: 102.6 cm/sec LVOT Max Rl: 87.0 cm/sec Ao V2 mean: 75.6 cm/sec LV V1 max P.0 mmHg Ao max P.2 mmHg LV V1 VTI: 23.0 cm Ao mean P.5 mmHg HAKEEM(I,D): 2.7 cm2 Ao V2 VTI: 27.9 cm HAKEEM(V,D): 2.7 cm2 sev ratio: 0.82 HAKEEM indexed to BSA (cm^2/m^2): 1.5 AI P1/2t: 792.8 msec AI dec slope: 126.7 cm/sec2 MV E max rl: 47.3 cm/sec TR max rl: 245.1 cm/sec MV A max rl: 66.1 cm/sec TR max P.1 mmHg MV E/A: 0.72 PA V2 max: 53.5 cm/sec Med Peak E' Rl: 4.8 cm/sec PA V2 mean: 33.4 cm/sec E/E' med: 9.8 PA mean P.55 mmHg Lat Peak E' Rl: 6.3 cm/sec PA pr(Accel): -4.9 mmHg E/E' lat: 7.5 E/e' average: 8.6 MV dec time: 0.28 sec SV(LVOT): 74.1 ml Reading Physician:02:51 PM
== END ==
PROVIDERS: PCP Internal Medicine; Referring Provider Internal Medicine; Visit Provider Internal Medicine Cardiovascular Disease
DX: I08.3 Combined rheumatic disorders of mitral, aortic and tricuspid valves (principal); I25.10 Atherosclerotic heart disease of native coronary artery without angina pectoris; I77.89 Other specified disorders of arteries and arterioles
CPT/HCPCS: 93306

== ENCOUNTER → 2021-03-10 07:57 | Outpatient (CLI) | payer MEDICARE, OTHER, SELFPAY ==
--- NOTE | 2021-03-10 | DI.MG.S_ITS ---
BILATERAL DIGITAL SCREENING MAMMOGRAM 3D/2D WITH CAD: 03/10/2021 CLINICAL: Routine screening. Comparison is made to exams dated: 03/04/2020 mammogram - [facility], 02/05/2019 mammogram, and 02/20/2018 mammogram - [facility]. There are scattered fibroglandular elements in both breasts. Current study was also evaluated with a Computer Aided Detection (CAD) system. There are benign calcifications in both breasts. No significant masses, calcifications, or other findings are seen in either breast. There has been no significant interval change. IMPRESSION: BENIGN There is no mammographic evidence of malignancy. A 1 year screening mammogram is recommended. This exam was interpreted at Station ID: [id number]. NOTE: For mammograms, a report in lay terms will be sent to the patient. Approximately 15% of breast malignancies will not be visualized mammographically. In the management of a palpable breast mass, a negative mammogram must not discourage biopsy of a clinically suspicious lesion. Electronically Signed By: Sung Montanez acr/christine:03/12/2021 08:41:25 letter sent: Normal Exam ACR BI-RADS Category 2: Benign Finding(s) [id number]
== END ==
PROVIDERS: PCP Internal Medicine; Referring Provider Internal Medicine; Visit Provider Internal Medicine
DX: Z12.31 Encounter for screening mammogram for malignant neoplasm of breast (principal)
CPT/HCPCS: 77063; 77067

== ENCOUNTER → 2022-04-16 08:44 | Outpatient (CLI) | payer MEDICARE, OTHER, SELFPAY ==
--- NOTE | 2022-04-16 08:46 | DI.CT.S_ITS ---
PROCEDURE: CT ANGIO ABDOMEN PELVIS INDICATIONS: EPIGASTRIC PAIN TECHNIQUE: After the administration of intravenous contrast, 2.5 mm thick sections acquired from the diaphragm to the symphysis. 10 mm maximum-intensity projection (MIP) reformats were then acquired. For radiation dose reduction, the following was used: automated exposure control. COMPARISON: None. FINDINGS: Image quality: Excellent. Aorta: The aorta demonstrates overall normal course and caliber. Exophytic atheromatous calcifications are present at the level of the renal arteries with severe aortic stenosis. No aneurysmal dilatation. No aortic dissection. Mesenteric arteries: The celiac axis, SMA, and PILLO are widely patent. The bilateral renal arteries are patent. Right pelvic arteries: There is a right common iliac stent which appears patent. Scattered atheromatous calcifications are present throughout. No focal hemodynamically significant stenosis to the level of the superior profunda and superficial femoral artery. Left pelvic arteries: Scattered atheromatous calcifications are present. No focal hemodynamically significant stenosis to the level of the superficial femoral artery and profunda. Extravascular soft tissues: Lung bases are clear. There is a large hiatal hernia. Heart size is mildly enlarged. No pericardial effusion. Liver is normal in size and enhancement. Gallbladder is not visualized and may be surgically absent. Biliary system is non dilated. Pancreas enhances normally. Spleen is normal in size and enhancement. Punctate calcifications within the spleen suggest prior histoplasmosis infection. No adrenal nodules. Kidneys are normal in size and enhancement, without hydronephrosis. Non opacified bowel loops are normal in wall thickness and caliber. There are scattered sigmoid diverticula. No evidence for diverticulitis. No free fluid or air. No retroperitoneal or mesenteric adenopathy. No ventral hernias. No suspicious bony lesions. No vertebral body compression fractures. IMPRESSION: 1. Severe aortic stenosis at the level of the renal arteries as above. No aneurysmal dilatation or aortic dissection. 2. Wide patency of the mesenteric and renal arteries. 3. Large hiatal hernia. This may be the etiology of the patient's epigastric pain. 4. Diverticulosis. No acute diverticulitis. Dictated by: Elizabeth Phillip M.D. on 04/16/2022 at 14:14 Approved by: Elizabeth Phillip M.D. on 04/16/2022 at 14:26
== END ==
PROVIDERS: PCP Internal Medicine; Referring Provider Internal Medicine Gastroenterology; Visit Provider Internal Medicine Gastroenterology
DX: K44.9 Diaphragmatic hernia without obstruction or gangrene (principal); R10.13 Epigastric pain; I35.0 Nonrheumatic aortic (valve) stenosis; K57.30 Diverticulosis of large intestine without perforation or abscess without bleeding
CPT/HCPCS: 74174